=== PATIENT | female | born 2000 | race Caucasian/White ===

== ENCOUNTER 2024-11-12 17:59 | Emergency (ER) | payer SELFPAY ==
[~2024-11-12] VITALS: Ht 154.9 cm; Wt 106.8 kg
[2024-11-12 18:15] VITALS: BP 137/83; PULSE 92; RESP 18; TEMP 98.8; O2SAT 97
[2024-11-12 18:49] LABS: COVID AG,FIA SOURCE NASAL SWAB
[2024-11-12 19:09] LABS: INFLUENZA TYPE B NEGATIVE FOR TYPE B (NEGATIVE); SARS-COV2 (COVID) ANTIGEN,FIA Negative (Negative)
[2024-11-12 19:20] LABS: INFLUENZA TYPE A POSITIVE FOR TYPE A (NEGATIVE)
== END 2024-11-12 20:55 | disposition left against medical advice (07) ==
LOC: EMS 18:11
DX: R05.9 Cough, unspecified (principal); R06.02 Shortness of breath; R51.9 Headache, unspecified; R11.2 Nausea with vomiting, unspecified; Z20.822 Contact with and (suspected) exposure to COVID-19; Z53.21 Procedure and treatment not carried out due to patient leaving prior to being seen by health care provider
CPT/HCPCS: 87804